=== PATIENT | female | born 1945 | race Caucasian/White ===

== ENCOUNTER 2017-11-09 20:31 | Emergency (ER) | payer MEDICARE, OTHER ==
--- NOTE | 2017-11-09 21:29 | EDM.PDOC ---
ED HPI GENERAL MEDICAL PROBLEM - General Chief Complaint: Neuro Symptoms/Deficits Stated Complaint: WEAKNESS Time Seen by Provider: 11/09/17 20:36 Source of Information: Reports: Patient, Family (Sister) History Limitations: Reports: No Limitations - History of Present Illness INITIAL COMMENTS - FREE TEXT/NARRATIVE: Patient is a 72-year-old female who presents to the emergency department this evening and has a complaint of left upper and left lower extremity weakness. Patient states that she believes this began late this morning while walking through the house. She felt like her left leg wasn't working properly. She does have a walker, but states she did not ambulate and just sat on a chair and watched TV. As day progressed, she noticed that her left upper extremity also felt weak. Sister decided to bring her to the emergency department. Her sister is a good historian, and states that these symptoms have been going on for several months, but do seem worse today. Sister states that recently she is becoming more confused and having more and more difficulty walking. Patient denies headache, vision changes, speech impairment, difficulty swallowing, facial numbness or tingling, fever, chest pain, shortness of breath, or any trauma. Onset: Unknown/Unsure Duration: Hour(s): Location: Reports: Upper Extremity, Left, Lower Extremity, Left Quality: Reports: Other (Weak) Improves with: Reports: None Worsens with: Reports: None Context: Denies: Trauma Associated Symptoms: Reports: Confusion, Weakness - Related Data Allergies Allergy/AdvReac Type Severity Reaction Status Date / Time codeine Allergy Nausea and Verified 11/09/17 21:28 Vomiting meperidine [From Demerol] Allergy Nausea and Verified 11/09/17 21:28 Vomiting Home Meds: Home Meds Cholecalciferol (Vitamin D3) [Vitamin D3] 1 cap PO DAILY 11/09/17 [History] Cyanocobalamin/Folic Acid [Vitamin Z98-Yderd Acid] 1 tab PO DAILY 11/09/17 [ History] Hydrochlorothiazide/Losartan [Hyzaar 50-12.5 MG] 1 tab PO DAILY 11/09/17 [ History] Ibuprofen [Advil] 600 mg PO BEDTIME 11/09/17 [History] Lansoprazole [Prevacid] 30 mg PO DAILY 11/09/17 [History] Latanoprost 1 drop EYEBOTH BEDTIME 11/09/17 [History] Timolol Maleate 1 drop EYEBOTH BID 11/09/17 [History] Venlafaxine HCl [Venlafaxine ER] 150 mg PO DAILY 11/09/17 [History] ED ROS GENERAL - Review of Systems Review Of Systems: ROS reveals no pertinent complaints other than HPI. Constitutional: Reports: Weakness (Left upper and left lower extremities) HEENT: Reports: No Symptoms Respiratory: Reports: No Symptoms Cardiovascular: Reports: No Symptoms Endocrine: Reports: No Symptoms GI/Abdominal: Reports: No Symptoms : Reports: No Symptoms Musculoskeletal: Reports: No Symptoms Skin: Reports: No Symptoms Neurological: Reports: No Symptoms Psychiatric: Reports: No Symptoms Hematologic/Lymphatic: Reports: No Symptoms Immunologic: Reports: No Symptoms ED EXAM, GENERAL - Physical Exam Exam: See Below Exam Limited By: No Limitations General Appearance: Alert, WD/WN, No Apparent Distress Eye Exam: Bilateral Eye: Normal Inspection Nose: Normal Inspection, Normal Mucosa, No Blood Throat/Mouth: Normal Inspection, Normal Oropharynx, No Airway Compromise Head: Atraumatic, Normocephalic Neck: Normal Inspection, Supple, Non-Tender Respiratory/Chest: No Respiratory Distress, Lungs Clear, Normal Breath Sounds, No Accessory Muscle Use, Chest Non-Tender Cardiovascular: Regular Rate, Rhythm, No Murmur GI/Abdominal: Normal Bowel Sounds, Soft, Non-Tender, No Organomegaly, No Distention, No Abnormal Bruit, No Mass Back Exam: Normal Inspection. No: CVA Tenderness (L), CVA Tenderness (R) Extremities: Non-Tender, No Pedal Edema, Other (Left upper extremity and left lower extremity 3/5. Right upper and lower extremity 5/5) Neurological: Alert, Oriented, CN II-XII Intact, Normal Cognition, No Motor/ Sensory Deficits Psychiatric: Normal Affect, Normal Mood Skin Exam: Warm, Dry, Intact, Normal Color, No Rash Lymphatic: No Adenopathy Course - Vital Signs Last Recorded V/S: Last Vital Signs Temp 98.2 F 11/09/17 22:52 Pulse 70 11/09/17 22:52 Resp 16 11/09/17 22:52 BP 140/47 L 11/09/17 22:52 Pulse Ox 95 11/09/17 22:52 - Orders/Labs/Meds Orders: Active Orders 24 hr Category Date Time Status Head wo Cont [CT] Stat Exams 11/09/17 21:17 Ordered UA W/MICROSCOPIC [URIN] Stat Lab 11/09/17 21:17 Ordered Labs: Laboratory Tests 11/09/17 11/09/17 11/09/17 Range/Units 21:25 21:25 21:25 WBC 8.0 (5.0-10.0) 10^3/uL RBC 4.23 (3.80-5.50) 10^6/uL Hgb 14.1 (12.0-16.0) g/dL Hct 40.7 (37.0-47.0) % MCV 96.3 H (82.0-92.0) fL MCH 33.4 H (27.0-31.0) pg MCHC 34.7 (32.0-36.0) g/dL RDW 11.9 (11.5-14.5) % Plt Count 252 (150-300) 10^3/uL MPV 7.6 (7.4-10.4) fL Neut % (Auto) 62.1 (50.0-70.0) % Lymph % (Auto) 24.8 (20.0-40.0) % [place] % (Auto) 8.9 H (2.0-8.0) % Eos % (Auto) 3.6 H (1.0-3.0) % Baso % (Auto) 0.6 (0.0-1.0) % Neut # (Auto) 5.0 (2.5-7.0) 10^3/uL Lymph # (Auto) 2.0 (1.0-4.0) 10^3/uL [place] # (Auto) 0.7 (0.1-0.8) 10^3/uL Eos # (Auto) 0.3 (0.1-0.3) 10^3/uL Baso # (Auto) 0.0 (0.0-0.1) 10^3/uL PT 9.3 (8.9-11.4) SEC INR 0.9 (0.9-1.1) APTT 23.3 (20.8-31.2) SEC Sodium 137 (136-145) mmol/L Potassium 3.9 (3.3-5.3) mmol/L Chloride 103 (98-115) mmol/L Carbon Dioxide 27.0 (21.0-32.0) mmol/L Anion Gap 10.9 (5-15) mmol/L BUN 15 (6-25) mg/dL Creatinine 1.33 H (0.51-1.17) mg/dL Est Cr Clr Drug Dosing 27.87 mL/min Estimated GFR (MDRD) 39 mL/min Glucose 101 mg/dL Calcium 8.9 (8.7-10.3) mg/dL Total Bilirubin 0.2 (0.2-1.0) mg/dL AST 33 (15-37) U/L ALT 24 (12-78) U/L Alkaline Phosphatase 59 (46-116) IU/L Total Protein 7.2 (6.4-8.2) g/dL Albumin 3.46 (3.00-4.80) g/dL Specimen Type Urine Color (YELLOW) Urine Appearance (CLEAR) Urine pH (5.0-9.0) Ur Specific [place] (1.005-1.030) Urine Protein (NEGATIVE) mg/dL Urine Glucose (UA) (NEGATIVE) mg/dL Urine Ketones (NEGATIVE) mg/dL Urine Occult Blood (NEGATIVE) Urine Nitrite (NEGATIVE) Urine Bilirubin (NEGATIVE) Urine Urobilinogen (0.2-1.0) E.U./dL Ur Leukocyte Esterase (NEGATIVE) Urine RBC /HPF Urine WBC /HPF Ur Epithelial Cells /LPF Urine Bacteria (NONE TO FEW) /HPF 11/09/17 Range/Units 21:45 WBC (5.0-10.0) 10^3/uL RBC (3.80-5.50) 10^6/uL Hgb (12.0-16.0) g/dL Hct (37.0-47.0) % MCV (82.0-92.0) fL MCH (27.0-31.0) pg MCHC (32.0-36.0) g/dL RDW (11.5-14.5) % Plt Count (150-300) 10^3/uL MPV (7.4-10.4) fL Neut % (Auto) (50.0-70.0) % Lymph % (Auto) (20.0-40.0) % [place] % (Auto) (2.0-8.0) % Eos % (Auto) (1.0-3.0) % Baso % (Auto) (0.0-1.0) % Neut # (Auto) (2.5-7.0) 10^3/uL Lymph # (Auto) (1.0-4.0) 10^3/uL [place] # (Auto) (0.1-0.8) 10^3/uL Eos # (Auto) (0.1-0.3) 10^3/uL Baso # (Auto) (0.0-0.1) 10^3/uL PT (8.9-11.4) SEC INR (0.9-1.1) APTT (20.8-31.2) SEC Sodium (136-145) mmol/L Potassium (3.3-5.3) mmol/L Chloride (98-115) mmol/L Carbon Dioxide (21.0-32.0) mmol/L Anion Gap (5-15) mmol/L BUN (6-25) mg/dL Creatinine (0.51-1.17) mg/dL Est Cr Clr Drug Dosing mL/min Estimated GFR (MDRD) mL/min Glucose mg/dL Calcium (8.7-10.3) mg/dL Total Bilirubin (0.2-1.0) mg/dL AST (15-37) U/L ALT (12-78) U/L Alkaline Phosphatase (46-116) IU/L Total Protein (6.4-8.2) g/dL Albumin (3.00-4.80) g/dL Specimen Type Urincc Urine Color Yellow (YELLOW) Urine Appearance Slightly cloudy H (CLEAR) Urine pH 5.5 (5.0-9.0) Ur Specific [place] 1.025 (1.005-1.030) Urine Protein Negative (NEGATIVE) mg/dL Urine Glucose (UA) Negative (NEGATIVE) mg/dL Urine Ketones Trace H (NEGATIVE) mg/dL Urine Occult Blood Negative (NEGATIVE) Urine Nitrite Positive H (NEGATIVE) Urine Bilirubin Negative (NEGATIVE) Urine Urobilinogen 0.2 (0.2-1.0) E.U./dL Ur Leukocyte Esterase Trace H (NEGATIVE) Urine RBC 0-5 /HPF Urine WBC 50-75 H /HPF Ur Epithelial Cells Few /LPF Urine Bacteria Many H (NONE TO FEW) /HPF Meds: Medications Discontinued Medications Generic Name Dose Route Start Last Admin Trade Name Henrietta PRN Reason Stop Dose Admin Ceftriaxone Sodium 1 gm 11/09/17 22:08 11/09/17 22:34 Rocephin IM 11/09/17 22:09 1 gm ONETIME ONE Administration Lidocaine HCl Confirm 11/09/17 22:29 Xylocaine 1% Administered 11/09/17 22:30 Dose 20 ml .ROUTE .STK-MED ONE - Radiology Interpretation Free Text/Narrative:: CT the head shows severe chronic microvascular ischemic changes, but no acute intracranial process. - Re-Assessments/Exams Free Text/Narrative Re-Assessment/Exam: 11/09/17 23:02 Patient afebrile, nontoxic appearing, vital signs stable. Patient's sister is at the emergency department. Patient will follow up with [facility] in one to 2 days. Departure - Departure Time of Disposition: 23:03 Disposition: Home, Self-Care 01 Condition: Good Clinical Impression: Muscle weakness Urinary tract infection Qualifiers: Urinary tract infection type: acute cystitis Hematuria presence: without hematuria Qualified Code(s): N30.00 - Acute cystitis without hematuria - Discharge Information Instructions: Urinary Tract Infection, Adult, [id number], Weakness, Easy-to- Read Referrals: Odalis Schulz MD [Primary Care Provider] - Forms: ED Department Discharge Additional Instructions: Follow-up at [facility] in 1-2 days. Return to emergency department sooner if symptoms continue or worsen. - My Orders Last 24 Hours: My Active Orders 11/09/17 21:17 Head wo Cont [CT] Stat UA W/MICROSCOPIC [URIN] Stat - Assessment/Plan Last 24 Hours: My Active Orders 11/09/17 21:17 Head wo Cont [CT] Stat UA W/MICROSCOPIC [URIN] Stat Assessment:: Urinary tract infection Plan: Follow-up at [facility]
[2017-11-09 21:49] LABS: ANION GAP 10.9 mmol/L (5-15)
[2017-11-09] MEDS: Lidocaine 1% 20 ML MDV ONE (22:30)
[2017-11-09] MEDS: cefTRIAXone 1 GM Vial IM ONE (22:34)
== END 2017-11-09 23:25 | disposition home or self-care (01) ==
LOC: KA.ED 20:31
DX: M62.81 Muscle weakness (generalized) (principal); N30.00 Acute cystitis without hematuria; Z88.5 Allergy status to narcotic agent; Z79.899 Other long term (current) drug therapy
CPT/HCPCS: 36415; 70450; 80053; 81001; 85025; 85610; 85730; 87086; 87088; 87186; 96372; 99285; J0696

== ENCOUNTER 2022-03-22 16:45 | Emergency (ER) | payer MEDICARE, OTHER ==
[2022-03-22 17:36] LABS: ANION GAP 10.4 mmol/L (5-15); CHLORIDE,CL 104 mmol/L (98-107); SODIUM,NA 141 mmol/L (136-145)
[2022-03-22 17:41] LABS: ESTIMATED GFR 68 mL/min (>=60)
[2022-03-22 17:43] LABS: PTT,PARTIAL THROMBOPLSTIN TIME 21.4 SEC (22.8-31.4)
[2022-03-22] MEDS: Sodium Chloride 0.9% 500 ML IV SCH (18:00)
[2022-03-22] MEDS: Sodium Chloride 0.9% 10 ML Syringe FLUSH PRN (19:04)
[2022-03-22] MEDS: cefTRIAXone 1 GM Vial IVPUSH ONE (19:04)
== END 2022-03-23 00:08 ==
LOC: KA.ED 16:45
DX: R56.9 Unspecified convulsions (principal); N39.0 Urinary tract infection, site not specified; E78.00 Pure hypercholesterolemia, unspecified; K21.9 Gastro-esophageal reflux disease without esophagitis; M06.9 Rheumatoid arthritis, unspecified; Z88.5 Allergy status to narcotic agent; Z88.8 Allergy status to other drugs, medicaments and biological substances; Z79.82 Long term (current) use of aspirin; Z79.899 Other long term (current) drug therapy
CPT/HCPCS: 36415; 70450; 71045; 80053; 81001; 84484; 85025; 85610; 85730; 87086; 87088; 87186; 93005; 93010; 96361; 96374; 99284; 99285-25; J0696; J3490; J7040